=== PATIENT | female | born 1980 | race Asian ===

== ENCOUNTER → 2016-11-19 | Outpatient (CLI) | payer OTHER ==
[~2016-11-19] MED LIST: OMNIPAQUE 350 MG/ML, 75ML BOTTLE ONE
== END | disposition home or self-care (01) ==
LOC: CFH 11:47
PROVIDERS: ATTEND Nurse Practitioner
DX: R91.1 Solitary pulmonary nodule (principal)
CPT/HCPCS: 71260; Q9967

== ENCOUNTER → 2017-06-03 | Outpatient (CLI) | payer OTHER ==
[~2017-06-03] MED LIST changes: +ACET650S21 PO; +ETAN50DI2 SC; +FOLI-17 PO; +METH2.5T PO; -OMNIPAQUE 350 MG/ML, 75ML BOTTLE ONE
[2017-06-03 14:03] LABS: BASOPHILS # (AUTO) 0.04 x10^3/uL (0-0.1); BASOPHILS % (AUTO) 1 % (0-1); EOSINOPHILS # (AUTO) 0.18 x10^3/uL (0-0.4); EOSINOPHILS % (AUTO) 3 % (1-7); LYMPHOCYTES # (AUTO) 2.92 x10^3/uL (1-3.4); LYMPHOCYTES % (AUTO) 42 % (22-44); MD NO; MEAN CORPUSCULAR HEMOGLOBIN 28.1 pg (27.0-34.8); MEAN CORPUSCULAR HGB CONC 32.6 g/dL (32.4-35.8); MEAN CORPUSCULAR VOLUME 86.1 fL (80-100); MONOCYTES # (AUTO) 0.65 x10^3/uL (0.2-0.8); MONOCYTES % (AUTO) 9 % (2-9); NEUTROPHILS # (AUTO) 3.23 x10^3/uL (1.8-6.8); NEUTROPHILS % (AUTO) 46 % (42-75); PLATELET COUNT 339 x10^3/uL (130-400); RED BLOOD COUNT 5.07 x10^6/uL (3.82-5.3); RED CELL DISTRIBUTION WIDTH 17.3 % (9.6-15.2)
[2017-06-03 14:09] LABS: INTERNATIONAL NORMALIZED RATIO 0.93 (0.93-1.1); PROTHROMBIN TIME 9.7 Seconds (9.6-11.5)
[2017-06-03 14:14] LABS: ANION GAP 7 mmol/L (5-15); CALCIUM 8.4 mg/dL (8.5-10.1); CHLORIDE 107 mmol/L (98-107); CREATININE 0.62 mg/dL (0.55-1.02)
== END | disposition home or self-care (01) ==
LOC: STAR 13:05
PROVIDERS: ATTEND Orthopaedic Surgery
DX: Z01.818 Encounter for other preprocedural examination (principal); M17.12 Unilateral primary osteoarthritis, left knee; Z79.899 Other long term (current) drug therapy; Z79.01 Long term (current) use of anticoagulants
CPT/HCPCS: 36415; 80048; 83036; 85025; 85610; 85730; 87081; 87806; G0475

== ENCOUNTER 2017-06-13 05:13 | Inpatient (IN) | payer OTHER ==
[2017-06-03 13:23] VITALS: BP 112/81
[~2017-06-13] VITALS: Ht 170.2 cm; Wt 111.5 kg
[2017-06-13] MEDS ORDERED: LACTATED RINGERS 1,000 ML IV SCH (05:35)
[2017-06-13] MEDS ORDERED: VANCOMYCIN 2,000 MG in SODIUM CHLORIDE 0.9% 500 ML IV ONE (06:00)
[2017-06-13] MEDS ORDERED: VANCOMYCIN PER PHARMACY MC PRN (06:00)
[2017-06-13] MEDS ORDERED: ACETAMINOPHEN 500 MG TABLET PO ONE (06:00)
[2017-06-13] MEDS ORDERED: GABAPENTIN 300 MG CAPSULE PO ONE (06:00)
[2017-06-13] MEDS ORDERED: LIDOCAINE-MPF 1%, 2ML INFIL ONE (06:00)
[2017-06-13 06:20] LABS: HCG UR SG 1.018 (1.003-1.030)
[2017-06-13] MEDS ORDERED: MIDAZOLAM 1 MG/ML, 2ML ONE (06:34)
[2017-06-13] MEDS ORDERED: FENTANYL PF 250 MCG/5ML ONE (06:34)
[2017-06-13] MEDS ORDERED: SODIUM CHLORIDE 0.9% 100 ML ONE (06:54)
[2017-06-13] MEDS ORDERED: KETOROLAC 60 MG/2 ML ONE (06:54)
[2017-06-13] MEDS ORDERED: EPINEPHRINE 1 MG/ML, 1ML ONE (06:54)
[2017-06-13] MEDS ORDERED: ROPIvacaine/PF 0.2%, 20 ML ONE (06:54)
[2017-06-13] MEDS ORDERED: TRANEXAMIC ACID 100 MG/ML, 10ML ONE ×4 (06:54)
[2017-06-13] MEDS ORDERED: SCOPOLAMINE PATCH, 1.5MG PATCH.TD72 TD ONE (07:00)
[2017-06-13] MEDS ORDERED: OxyconTIN ER 20 MG TAB.ER PO ONE (07:00)
[2017-06-13] MEDS ORDERED: ONDANSETRON ODT 8 MG PO ONE (07:00)
[2017-06-13] MEDS ORDERED: KETAMINE 100 MG/ML, 5ML IV ONE (07:00)
[2017-06-13] MEDS ORDERED: KETAMINE 100 MG/ML, 5ML ONE (07:17)
[2017-06-13] MEDS ORDERED: DIPHENHYDRAMINE 50 MG CAPSULE PO PRN (07:30)
[2017-06-13] MEDS ORDERED: ONDANSETRON 2MG/ML, 2ML IV PRN (07:30)
[2017-06-13] MEDS ORDERED: ALUMINUM/MAG/SIMETHICONE 30 ML UDC PO PRN (07:30)
[2017-06-13] MEDS ORDERED: HYDROmorphone 1 MG/ML, 1ML IV PRN (07:30)
[2017-06-13] MEDS ORDERED: ACETAMINOPHEN 650 MG/20.3 ML UDC PO PRN (07:30)
[2017-06-13] MEDS ORDERED: MAGNESIUM HYDROXIDE 8%, 30ML UDC PO PRN (07:30)
[2017-06-13] MEDS ORDERED: DIAZEPAM 5 MG TABLET PO PRN (07:30)
[2017-06-13] MEDS ORDERED: SENNA/DOCUSATE TABLET PO PRN (07:30)
[2017-06-13] MEDS ORDERED: ONDANSETRON 4 MG TABLET PO PRN (07:30)
[2017-06-13] MEDS ORDERED: MEPERIDINE/PF 100 MG/ML ONE (07:52)
[2017-06-13] MEDS ORDERED: ALBUTEROL SULFATE 2.5 MG/3 ML NPPB PRN (08:00)
[2017-06-13] MEDS ORDERED: FENTANYL PF 100 MCG/2ML IV PRN (08:00)
[2017-06-13] MEDS ORDERED: ALBUTEROL/IPRATROPIUM 2.5MG/0.5MG, 3 ML NPPB PRN (08:00)
[2017-06-13] MEDS ORDERED: hydrALAzine 20 MG/ML, 1ML IV PRN (08:00)
[2017-06-13] MEDS ORDERED: MEPERIDINE/PF 25MG/0.5ML IVPush PRN (08:00)
[2017-06-13] MEDS ORDERED: METOCLOPRAMIDE 5 MG/ML, 2ML IV PRN (08:00)
[2017-06-13] MEDS ORDERED: DIAZEPAM 5 MG/ML, 2ML IVPush PRN (08:00)
[2017-06-13] MEDS ORDERED: PROMETHAZINE 25 MG/ML, 1ML IV PRN (08:00)
[2017-06-13] MEDS ORDERED: LORazepam 2 MG/ML, 1ML IVPush PRN (08:00)
[2017-06-13] MEDS ORDERED: OXYcodone 5 MG/5 ML ORAL.SOL UDC PO PRN (08:00)
[2017-06-13] MEDS ORDERED: ONDANSETRON 2MG/ML, 2ML IVPush PRN (08:00)
[2017-06-13] MEDS ORDERED: MIDAZOLAM 1 MG/ML, 2ML IV PRN (08:00)
[2017-06-13] MEDS ORDERED: morphine SULFATE 10 MG/ML, 1ML IV PRN (08:00)
[2017-06-13] MEDS ORDERED: LABETALOL 5MG/ML, 20ML IV PRN (08:00)
[2017-06-13] MEDS ORDERED: DEXAMETHASONE 4 MG/ML, 1ML ONE (08:19)
[2017-06-13] MEDS ORDERED: CEFAZOLIN 1,000 MG ONE (08:19)
[2017-06-13] MEDS ORDERED: ONDANSETRON 2MG/ML, 2ML ONE (08:19)
[2017-06-13] MEDS ORDERED: PROPOFOL 10 MG/ML, 20ML ONE (08:19)
[2017-06-13] MEDS ORDERED: LIDOCAINE-MPF 2% ,5ML ONE (08:19)
[2017-06-13] MEDS ORDERED: BUPIVACAINE/PF 0.25% ONE (08:20)
[2017-06-13] MEDS ORDERED: LIDOCAINE GEL 2%, 5ML ONE (08:25)
[2017-06-13] MEDS ORDERED: SUCCINYLCHOLINE 20 MG/ML, 10ML ONE (08:28)
[2017-06-13] MEDS ORDERED: TRANEXAMIC ACID 1,000 MG in SODIUM CHLORIDE 0.9% 100 ML IVPB ONE (09:30)
[2017-06-13] MEDS: DOCUSATE 100 MG CAPSULE PO SCH ×2 (11:14→19:14)
[2017-06-13] MEDS: TAMSULOSIN 0.4 MG CAP.ER.24H PO SCH (11:14)
[2017-06-13 13:25] VITALS: BP 111/83
[2017-06-13] MEDS: D5%-0.45NACL+KCL 20MEQ 1,000 ML IV SCH (14:00)
[2017-06-13] MEDS: CEFAZOLIN PMX 1GM/50ML 50 ML IVPB SCH (17:47)
[2017-06-13] MEDS: ASPIRIN 81 MG TABLET EC PO SCH (17:47)
[2017-06-13 18:51] VITALS: BP 108/71
[2017-06-13] MEDS: OXYcodone IR 5MG TABLET PO PRN (19:14)
[2017-06-14] MEDS: OXYcodone IR 5MG TABLET PO PRN ×4 (00:01→11:55)
[2017-06-14 01:19] VITALS: BP 97/62
[2017-06-14] MEDS: CEFAZOLIN PMX 1GM/50ML 50 ML IVPB SCH (01:26)
[2017-06-14] MEDS: ASPIRIN 81 MG TABLET EC PO SCH (05:50)
[2017-06-14] MEDS ORDERED: DEXAMETHASONE 4 MG/ML, 1ML IVPush SCH (06:00)
[2017-06-14 07:44] VITALS: BP 100/67
[2017-06-14] MEDS: DOCUSATE 100 MG CAPSULE PO SCH (08:38)
[2017-06-14] MEDS: TAMSULOSIN 0.4 MG CAP.ER.24H PO SCH (08:39)
[2017-06-14] MEDS: D5%-0.45NACL+KCL 20MEQ 1,000 ML IV SCH ×2 (10:00)
[2017-06-14] MEDS ORDERED: KETOROLAC 30 MG/1 ML IV SCH (11:00)
[2017-06-14] MEDS ORDERED: OXYC1TAB7 PO (12:02)
[2017-06-14] MEDS ORDERED: ASPI-496 PO (12:03)
[2017-06-14] MEDS ORDERED: DOCU-131 PO ×2 (12:04→12:19)
[2017-06-14] MEDS ORDERED: ONDA4TAB10 PO ×2 (12:05→12:19)
[2017-06-14] MEDS ORDERED: CELE200C PO (12:06)
[2017-06-14] MEDS ORDERED: TRAM50TA2 PO ×2 (12:06→12:17)
[2017-06-14] MEDS ORDERED: DIAZ5TAB4 PO ×2 (12:07→12:18)
== END 2017-06-14 12:40 | disposition home or self-care (01) | DRG 470 ==
LOC: OUT 05:13 → ORIP 07:13 → EDSTATUS 07:30 → 4NOR 10:39 → DCLOUNGE 06-14 12:13
PROVIDERS: ADMIT Orthopaedic Surgery; ATTEND Orthopaedic Surgery
PROC: 0SRD0J9 Replacement of Left Knee Joint with Synthetic Substitute, Cemented, Open Approach (ICD-10-PCS; principal; 2017-06-13 07:30)
DX: M17.12 Unilateral primary osteoarthritis, left knee (principal); M06.9 Rheumatoid arthritis, unspecified; Z90.49 Acquired absence of other specified parts of digestive tract; Z96.651 Presence of right artificial knee joint
CPT/HCPCS: 36415; 81025; 85014; 85018; C1713; J0171; J0690; J1100; J1885; J2250; J2405; J2704; J2795; J3010; J3370; J3490; Q0162; C1776; J0330; J2175; J3480; J7040; J7120